=== PATIENT | female | born 1980 | race African-American/Black ===

== ENCOUNTER 2019-06-11 22:02 | Emergency (ER) | payer OTHER ==
[~2019-06-11] VITALS: Ht 157.5 cm; Wt 72.6 kg
[2019-06-11] MEDS ORDERED: ZOFRAN ODT4 MG DISSOLVE (22:20)
[2019-06-11] MEDS ORDERED: TRAMADOL 50 MG50 MG PO (22:20)
[2019-06-11] MEDS ORDERED: ASPIRIN325 PO (22:21)
[2019-06-12] VITALS: BP 152/95
== END 2019-06-12 00:04 | disposition home or self-care (01) ==
LOC: ER 22:02
DX: R51 Headache (principal); R42 Dizziness and giddiness; J45.909 Unspecified asthma, uncomplicated; F17.210 Nicotine dependence, cigarettes, uncomplicated; Z98.51 Tubal ligation status